=== PATIENT | male | born 1975 | race African-American/Black ===

== ENCOUNTER 2021-11-08 20:12 | Inpatient (IN) | payer MEDICAID ==
[~2021-11-08] VITALS: Ht 185.4 cm; Wt 105.2 kg
[2021-11-08] MEDS ORDERED: SODIUM CHLORIDE 0.9% 1,000 ML IV ONE (20:30)
[2021-11-08 22:12] LABS: BASOPHILS % 0.1 % (0.0-2.0); EOSINOPHILS % 0.3 % (0.0-5.0); HEMATOCRIT. 41.5 % (42.0-52.0); HEMOGLOBIN. 14.2 g/dL (14.0-18.0); LYMPHOCYTES % 11.9 % (20.0-50.0); MEAN CORPUSCULAR HEMOGLOBIN 29.1 pg (28.0-32.0); MEAN PLATELET VOLUME 7.4 fl (7.4-10.4); MONOCYTES % 6.8 % (2.0-8.0); NEUTROPHILS % 80.9 % (40.0-76.0); PLATELET 240 x1000/uL (130-400); RED BLOOD CELL COUNT 4.88 mill/uL (4.7-6.1); RED CELL DISTRIBUTION WIDTH 13.7 % (11.6-14.6)
[2021-11-08 22:13] LABS: CHLORIDE 104 mEq/L (98-107)
[2021-11-08 22:14] LABS: CLARITY URINE CLEAR (CLEAR); COLOR URINE YELLOW (YELLOW); KETONES URINE TRACE (NEGATIVE); LEUKOCYTE ESTERASE URINE NEGATIVE (NEGATIVE); NITRITE URINE NEGATIVE (NEGATIVE); OCCULT BLOOD URINE NEGATIVE (NEGATIVE); PROTEIN URINE NEGATIVE (NEGATIVE); SPECIFIC GRAVITY URINE 1.024 (1.005-1.030); UROBILINOGEN URINE 0.2 E.U./dL (0.2-1.0)
[2021-11-08 22:17] LABS: ETHANOL BLOOD < 10 mg/dL
[2021-11-08 22:36] LABS: *BARBITURATES SCREEN URINE NEGATIVE (NEGATIVE)
[2021-11-08 22:37] LABS: *AMPHETAMINES SCREEN URINE NEGATIVE (NEGATIVE); *BENZODIAZEPINES SCREEN URINE NEGATIVE (NEGATIVE); *COCAINE SCREEN URINE NEGATIVE (NEGATIVE); CANNABINOID URINE SCREEN NEGATIVE (NEGATIVE); METHADONE URINE SCREEN NEGATIVE (NEGATIVE); OPIATES URINE SCREEN NEGATIVE (NEGATIVE); PHENCYCLIDINE URINE SCREEN NEGATIVE (NEGATIVE)
[2021-11-09] MEDS ORDERED: GADOTERATE MEGLUMINE 5 MMOL/10 ML VIAL IV ONE (00:57)
[2021-11-09] MEDS ORDERED: LEVETIRACETAM 500MG PREMIX 100 ML IV ONE (01:30)
[2021-11-09] MEDS ORDERED: DEXAMETHASONE 10 MG/ML VIAL IV ONE (01:30)
[2021-11-09] MEDS ORDERED: ONDANSETRON HCL 4MG/2ML INJ IV ONE (01:30)
[2021-11-09] MEDS ORDERED: LORAZEPAM 2MG/ML CPJ IV PRN (06:45)
[2021-11-09] MEDS ORDERED: CLONIDINE 0.1MG TABLET PO PRN (06:45)
[2021-11-09] MEDS ORDERED: ONDANSETRON HCL 4MG/2ML INJ IV PRN (06:45)
[2021-11-09] MEDS: LEVETIRACETAM 500MG PREMIX 100 ML IV SCH (06:51)
[2021-11-09] MEDS: SODIUM CHLORIDE 0.45% 1,000 ML IV SCH ×2 (06:51→20:13)
[2021-11-09] MEDS ORDERED: METHYL SALICYLATE/MENTHOL CREAM 85GM TOP PRN (10:00)
[2021-11-09] MEDS: ACETAMINOPHEN 325MG TABLET PO PRN (22:04)
[2021-11-09 22:20] VITALS: BP 114/82
[2021-11-10] VITALS: BP 103/61
[2021-11-10] MEDS: LEVETIRACETAM 500MG PREMIX 100 ML IV SCH ×2 (00:45→10:02)
[2021-11-10 03:40] VITALS: BP 102/71
[2021-11-10] MEDS: ACETAMINOPHEN 325MG TABLET PO PRN (03:40)
[2021-11-10 07:01] LABS: BASOPHILS % 0.1 % (0.0-2.0); EOSINOPHILS % 0.6 % (0.0-5.0); HEMATOCRIT. 38.3 % (42.0-52.0); LYMPHOCYTES % 19.6 % (20.0-50.0); MEAN CORPUSCULAR HEMOGLOBIN 29.2 pg (28.0-32.0); MEAN CORPUSCULAR VOLUME 85.9 fL (80.0-94.0); MEAN PLATELET VOLUME 8.4 fl (7.4-10.4); MONOCYTES % 7.9 % (2.0-8.0); NEUTROPHILS % 71.8 % (40.0-76.0); PLATELET 185 x1000/uL (130-400); RED BLOOD CELL COUNT 4.46 mill/uL (4.7-6.1); RED CELL DISTRIBUTION WIDTH 13.5 % (11.6-14.6)
[2021-11-10 07:09] LABS: CHLORIDE 106 mEq/L (98-107)
[2021-11-10 08:12] VITALS: BP 104/58
[2021-11-10] MEDS: SODIUM CHLORIDE 0.45% 1,000 ML IV SCH (09:40)
[2021-11-10 10:07] VITALS: BP 104/58
== END 2021-11-10 12:26 | disposition home or self-care (01) | DRG 41 ==
LOC: ER 20:12 → MICUSO 11-09 02:13 → 6WST 11-09 21:10
PROVIDERS: ADMIT Hospitalist; ATTEND Hospitalist
DX: C71.9 Malignant neoplasm of brain, unspecified (principal); R56.9 Unspecified convulsions; I10 Essential (primary) hypertension; Z20.822 Contact with and (suspected) exposure to COVID-19; Z82.49 Family history of ischemic heart disease and other diseases of the circulatory system
CPT/HCPCS: 36415; 70553; 71045; 80053; 80305; 80320; 81003; 85025; 87426; 93005; 99291; A9577; J1100; J1953; J2060; J2405; J7030; G0480